=== PATIENT | female | born 1990 | race African-American/Black ===

== ENCOUNTER 2016-08-18 01:51 | Emergency (ER) | payer OTHER ==
[~2016-08-18] VITALS: Ht 170.2 cm; Wt 72.6 kg
[~2016-08-18 01:51] MED LIST: APAP/CODEINE ELI5 M1 OR; NORCO 5-325 TA1 EACH PO; PREDNISONE50 MG PO; PROAIR HFA8.5 GM INH; ROBITUSSIN100 MG/53 PO; TUSSIN DM MAX118 ML PO; ZPAK PO
[2016-08-18] MEDS ORDERED: IRON325 PO (02:06)
[2016-08-18] MEDS ORDERED: PNV PRENATAL P1 EACH PO (02:06)
[2016-08-18] MEDS ORDERED: COLACE100 MG PO (02:06)
[2016-08-18] MEDS ORDERED: OXYCODONE-ACET1 EACH PO (02:06)
[2016-08-18] MEDS ORDERED: IBUPROFEN 800800 M1 PO (02:06)
[2016-08-18 04:17] LABS: URINE BILIRUBIN NEGATIVE (Negative); URINE BLOOD TRACE (Negative); URINE COLOR YELLOW; URINE GLUCOSE-RANDOM* NEGATIVE (Negative); URINE KETONES 1+ (Negative); URINE LEUKOCYTES-REFLEX 2+ (Negative); URINE PROTEIN (DIPSTICK) TRACE (Negative); URINE SPECIFIC GRAVITY 1.025 (1.003-1.035); URINE UROBILINOGEN 0.2 E.U./dl (0.2-1.0)
[2016-08-18 04:37] LABS: SQUAMOUS >10 Many /LPF (0-3)
[2016-08-18 04:38] LABS: CASTS None Seen /LPF (None Seen); CRYSTALS None Seen /LPF (None Seen); URINE RBC 0-2 Rare /HPF (0-2)
[2016-08-18] MEDS ORDERED: BISACODYL SUPP10 MG RECTAL (04:48)
[2016-08-18] MEDS ORDERED: SENOKOT-S1 TA1 PO (04:48)
[2016-08-18] MEDS ORDERED: FLEET ENEMA118 ML RC (04:48)
[2016-08-18 05:09] VITALS: BP 125/85
== END 2016-08-18 04:49 ==
LOC: ER 01:51
PROVIDERS: Emergency Medicine
DX: K59.03 Drug induced constipation (principal); T40.2X5A Adverse effect of other opioids, initial encounter; Z98.890 Other specified postprocedural states; Z88.0 Allergy status to penicillin; Y92.89 Other specified places as the place of occurrence of the external cause